=== PATIENT | male | born 1990 | race Caucasian/White ===

== ENCOUNTER 2018-07-18 19:32 | Emergency (ER) | payer OTHER ==
[~2018-07-18] VITALS: Ht 175.3 cm; Wt 68.0 kg
[~2018-07-18 19:32] MED LIST: NAPROSYN500 MG PO; NOHOMEMEDICATIONS; PREDNISONE 20 M20 M1 PO; PREDNISONE50 MG PO; ROBAXIN 750 MG750 MG PO; TRAMADOL 50 MG50 MG PO; VISTARIL 25 MG25 M1 PO; ZOFRAN4 MG PO; [UNRECOGNIZED DRUG - REMARK]
[2018-07-18 20:26] LABS: ABSOLUTE BASOPHILS 0.1 thou/uL (0.0-0.2); ABSOLUTE EOSINOPHILS 0.2 thou/uL (0.0-0.7); ABSOLUTE LYMPHOCYTES 2.8 thou/uL (0.8-5.3); ABSOLUTE MONOCYTES 0.5 thou/uL (0.0-1.2); ABSOLUTE NEUTROPHILS 5.9 thou/uL (1.6-8.1); BASOPHILS 0.9 %; EOSINOPHILS 2.1 %; HEMATOCRIT 42.5 % (42.0-52.0); HEMOGLOBIN 14.6 gm/dL (14.0-18.0); LYMPHOCYTES 29.6 %; MCH 29.4 pg (26.0-34.0); MCHC 34.4 g/dL (28.0-37.0); MCV 85.5 fL (80.0-100.0); MONOCYTES 4.9 %; MPV 8.9 fl. (7.2-11.1); NUCLEATED RBCS 0 /100WBC; PLATELET COUNT* 216 thou/uL (150-400); POLYS 62.5 %; RBC 4.97 mil/uL (4.50-6.00); RDW-CV 13.1 % (10.5-14.5); WBC 9.4 thou/uL (4.0-11.0)
[2018-07-18 20:45] LABS: APTT 28.7 Seconds (25.0-31.3); INR 0.9; PROTIME 9.5 Seconds (9.20-11.50)
[2018-07-18 21:04] LABS: ALBUMIN 3.8 g/dL (3.4-5.0); ALKALINE PHOSPHATASE 91 U/L (46-116); ANION GAP 7 mmol/L (7-16); BUN 12 mg/dL (7-18); CALCIUM 8.7 mg/dL (8.5-10.1); CHLORIDE 104 mmol/L (98-107); CK-MB MASS 1.4 ng/mL (<0.5-3.6); CO2 32 mmol/L (21-32); CREATININE 0.9 mg/dL (0.6-1.3); GLUCOSE 110 mg/dL (70-99); LIPASE 75 U/L (73-393); MAGNESIUM 2.1 mg/dL (1.8-2.4); NT-PRO BRAIN NAT PEPTIDE 16 pg/mL (<300); POTASSIUM 3.7 mmol/L (3.5-5.1); SGOT 20 U/L (15-37); SGPT 27 U/L (30-65); SODIUM 143 mmol/L (136-145); TOTAL BILIRUBIN 0.2 mg/dL (<0.1-1.0); TOTAL PROTEIN 7.1 g/dL (6.4-8.2); TROPONIN-I LEVEL <0.06 ng/mL (<0.06)
[2018-07-18 21:18] VITALS: BP 120/66
--- NOTE | 2018-07-19 10:39 | EKG ---
[place] [address] ELECTROCARDIOGRAM REPORT Name: CATIA DASH Room: [facility]#: [id number] Admission: 07/18/18 Attend Phys: Discharge: 07/18/18 Date of : 88 Report #: [id number] THIS REPORT FOR: //name// [facility] Test Date: 2018-07-18 Test Time: 19:39:07 Pat Name: CATIA DASH Department: Room: Gender: M Dumper Operator: SURJIT : 1990 Requested By: Huber Bauer Order Number: [id number] MD: Misbah Riley Measurements Intervals [place] Rate: 72 P: 55 [place]: 115 QRS: 33 QRSD: 101 T: 51 QT: 398 QTc: 436 Interpretive Statements Sinus rhythm Borderline short [place] interval Compared to ECG 01/03/2014 19:13:06 No significant changes Electronically Signed On 07-19-2018 10:39:36 CDT by Misbah Riley [email or web address] <ELECTRONICALLY SIGNED> By: Misbah Riley MD, [facility] 07/19/18 1039 [id number] Misbah Riley MD, FACC /EPI
== END 2018-07-18 21:19 | disposition home or self-care (01) ==
LOC: M.ERS 19:32
PROVIDERS: Family Medicine
DX: R07.89 Other chest pain (principal); F32.9 Major depressive disorder, single episode, unspecified; F17.220 Nicotine dependence, chewing tobacco, uncomplicated; Z87.01 Personal history of pneumonia (recurrent)

== ENCOUNTER 2020-01-22 21:14 | Emergency (ER) | payer OTHER ==
[~2020-01-22] VITALS: Ht 177.8 cm; Wt 66.7 kg
[2020-01-22 21:35] LABS: URINE BILIRUBIN NEGATIVE (Negative); URINE BLOOD NEGATIVE (Negative); URINE CLARITY CLEAR; URINE COLOR YELLOW; URINE GLUCOSE-RANDOM NEGATIVE (Negative); URINE KETONES 1+ (Negative); URINE LEUKOCYTES-REFLEX NEGATIVE (Negative); URINE NITRITE-REFLEX NEGATIVE (Negative); URINE PROTEIN NEGATIVE (Negative); URINE SPECIFIC GRAVITY >= 1.030 (1.005-1.030); URINE UROBILINOGEN 0.2 E.U./dl (0.2-1.0)
[2020-01-22 22:06] LABS: ABSOLUTE EOSINOPHILS 0.1 thou/uL (0.0-0.7); ABSOLUTE LYMPHOCYTES 2.7 thou/uL (0.8-5.3); ABSOLUTE MONOCYTES 0.5 thou/uL (0.0-1.2); ABSOLUTE NEUTROPHILS 5.4 thou/uL (1.6-8.1); BASOPHILS 0.5 %; EOSINOPHILS 1.5 %; HEMOGLOBIN 14.3 gm/dL (14.0-18.0); LYMPHOCYTES 30.7 %; MCH 30.5 pg (26.0-34.0); MCHC 35.7 g/dL (28.0-37.0); MCV 85.4 fL (80.0-100.0); MONOCYTES 5.3 %; MPV 8.9 fl. (7.2-11.1); NUCLEATED RBCS 0 /100WBC; PLATELET COUNT* 218 thou/uL (150-400); RBC 4.69 mil/uL (4.50-6.00); WBC 8.8 thou/uL (4.0-11.0)
[2020-01-22 22:12] LABS: CALCIUM 8.6 mg/dL (8.5-10.1); CREATININE 1.1 mg/dL (0.6-1.3); POTASSIUM 3.2 mmol/L (3.5-5.1)
[2020-01-22] MEDS ORDERED: FLEXERIL PO (23:24)
[2020-01-22] MEDS ORDERED: LORCET 5-325 M1 EACH PO (23:24)
[2020-01-22 23:39] VITALS: BP 120/67
== END 2020-01-22 23:43 | disposition home or self-care (01) ==
LOC: M.ERS 21:14
PROVIDERS: Emergency Medicine
DX: N20.0 Calculus of kidney (principal); F32.9 Major depressive disorder, single episode, unspecified; F17.220 Nicotine dependence, chewing tobacco, uncomplicated

== ENCOUNTER 2020-12-03 21:16 | Emergency (ER) | payer OTHER ==
[~2020-12-03] VITALS: Ht 175.3 cm; Wt 67.6 kg
[~2020-12-03 21:16] MED LIST changes: +FLEXERIL PO; +LORCET 5-325 M1 EACH PO
[2020-12-04 02:28] LABS: ABSOLUTE BASOPHILS 0.1 thou/uL (0.0-0.2); ABSOLUTE LYMPHOCYTES 0.6 thou/uL (0.8-5.3); ABSOLUTE MONOCYTES 0.6 thou/uL (0.0-1.2); EOSINOPHILS 0.7 %; HEMATOCRIT 42.8 % (42.0-52.0); HEMOGLOBIN 14.4 gm/dL (14.0-18.0); LYMPHOCYTES 8.3 %; MCH 28.8 pg (26.0-34.0); MCHC 33.7 g/dL (28.0-37.0); MCV 85.4 fL (80.0-100.0); MONOCYTES 8.2 %; MPV 8.8 fl. (7.2-11.1); NUCLEATED RBCS 0 /100WBC; PLATELET COUNT* 195 thou/uL (150-400); POLYS 81.8 %; RBC 5.01 mil/uL (4.50-6.00); RDW-CV 13.4 % (10.5-14.5); WBC 7.4 thou/uL (4.0-11.0)
[2020-12-04 02:34] LABS: CALCIUM 8.8 mg/dL (8.5-10.1); POTASSIUM 4.1 mmol/L (3.5-5.1)
[2020-12-04 02:39] LABS: TOTAL BILIRUBIN 0.3 mg/dL (<0.1-1.0); TOTAL PROTEIN 7.2 g/dL (6.4-8.2)
[2020-12-04 03:29] LABS: URINE BILIRUBIN NEGATIVE (Negative); URINE BLOOD NEGATIVE (Negative); URINE CLARITY CLEAR; URINE COLOR YELLOW; URINE GLUCOSE-RANDOM NEGATIVE (Negative); URINE KETONES 1+ (Negative); URINE LEUKOCYTES-REFLEX NEGATIVE (Negative); URINE NITRITE-REFLEX NEGATIVE (Negative); URINE PROTEIN NEGATIVE (Negative); URINE SPECIFIC GRAVITY 1.025 (1.005-1.030); URINE UROBILINOGEN 0.2 E.U./dl (0.2-1.0)
[2020-12-04] MEDS ORDERED: ZOFRAN ODT4 MG PO (03:58)
[2020-12-04 04:33] VITALS: BP 118/72
== END 2020-12-04 04:35 | disposition home or self-care (01) ==
LOC: M.ERS 21:16
PROVIDERS: Personal Emergency Response Attendant
DX: U07.1 COVID-19 (principal); E86.0 Dehydration